=== PATIENT | female | born 1975 | race Hispanic/Latino ===

== ENCOUNTER 2021-06-30 18:25 | Emergency (ER) | payer BC ==
[~2021-06-30] VITALS: Ht 162.6 cm; Wt 78.0 kg
[2021-06-30 18:30] VITALS: BP 105/67
[2021-06-30] MEDS ORDERED: 0.9%NACL 1000ML 1,000 ML IV ONE (19:00)
[2021-06-30 19:05] LABS: APPEARANCE,URINE CLEAR (CLEAR); BILIRUBIN,URINE NEGATIVE (NEGATIVE); COLOR,URINE YELLOW (YELLOW); GLUCOSE, URINE (UA) NEGATIVE (NEGATIVE); KETONES,URINE NEGATIVE (NEGATIVE); LEUKOCYTE ESTERASE ,URINE NEGATIVE (NEGATIVE); NITRATE,URINE NEGATIVE (NEGATIVE); OCCULT BLOOD,URINE NEGATIVE (NEGATIVE); PROTEIN,URINE NEGATIVE (NEGATIVE); UROBILINOGEN,URINE 0.2 mg/dL (0.2-1.0)
[2021-06-30 19:08] LABS: BASOPHILS % (AUTO) 0.3 % (0.0-5.0); HEMATOCRIT 40.5 % (36-48); LYMPHOCYTES % (AUTO) 11.2 % (21.0-51.0); MEAN CORPUSCULAR HEMOGLOBIN 31.7 pg (27.0-33.0); MEAN CORPUSCULAR HGB CONC 34.1 g/dL (32.0-36.0); MEAN CORPUSCULAR VOLUME 92.9 fL (79-99); MONOCYTES % (AUTO) 4.3 % (3.0-13.0); NEUTROPHILS % (AUTO) 83.9 % (40.0-77.0); PLATELET COUNT (AUTO) 214 K/uL (130-400); RED BLOOD CELL COUNT(AUTO) 4.36 MIL/uL (4.00-5.50); RED CELL DISTRIBUTION WIDTH 12.2 % (11.0-15.5); WHITE BLOOD COUNT (AUTO) 7.5 K/uL (4.8-10.8)
[2021-06-30 19:12] LABS: HCG,QUAL RESULT NEGATIVE (NEGATIVE)
[2021-06-30 19:16] LABS: CREATININE 0.7 mg/dL (0.5-1.5); POTASSIUM 3.3 mmol/L (3.5-5.1)
[2021-06-30 19:29] LABS: ALBUMIN 3.6 g/dL (3.5-5.0); BILIRUBIN,TOTAL 0.2 mg/dL (0.2-1.0); TOTAL PROTEIN, SERUM 7.6 g/dL (6.0-8.3)
[2021-06-30] MEDS ORDERED: ONDANSETRON 4MG INJ IVP ONE (19:30)
[2021-06-30] MEDS ORDERED: FAMOTIDINE 20MG VIAL IV ONE (19:30)
[2021-06-30] MEDS ORDERED: DICYCLOMINE 20MG (10MG/ML) AMP IM ONE (19:30)
[2021-06-30] MEDS ORDERED: IOHEXOL 350 MG/ML 100ML INFUS..BTL IV ONE (19:47)
[2021-06-30] MEDS ORDERED: DICY20TA2 PO (20:58)
[2021-06-30] MEDS ORDERED: ONDA4TAB10 PO (20:58)
[2021-06-30] MEDS ORDERED: ACETAMINOPHEN 500 MG TABLET ONE (20:58)
[2021-06-30] MEDS ORDERED: FAMO-136 PO (20:58)
[2021-06-30] MEDS ORDERED: ACETAMINOPHEN 500 MG TABLET PO ONE (21:00)
== END 2021-06-30 21:17 | disposition home or self-care (01) ==
LOC: EDH 18:30
DX: K52.9 Noninfective gastroenteritis and colitis, unspecified (principal); Z79.899 Other long term (current) drug therapy
CPT/HCPCS: 36415; 71045; 74177; 80053; 81003; 81025; 83605; 83690; 84484; 85025; 87040 ×2; 93005; 96361; 96372; 96374; 96375; 99284; J0500; J2405; J3490; J7030; Q9967